=== PATIENT | male | born 1995 | race American Indian/Alaskan Native ===

== ENCOUNTER 2018-12-17 16:18 | Emergency (ER) | payer MEDICAID ==
[~2018-12-17] VITALS: Ht 182.9 cm; Wt 81.8 kg
[2018-12-17] MEDS ORDERED: LORazepam 1 MG tablet PO ONE (18:30)
[2018-12-17 18:32] LABS: BASOPHILS # (AUTO) 0.1 X10'3 (0-0.2); EOSINOPHILS # (AUTO) 0.4 X10'3 (0-0.9); HEMATOCRIT 49.4 % (42.0-52.0); HEMOGLOBIN 16.4 g/dl (14.0-17.9); LYMPHOCYTES % (AUTO) 32.7 % (21-51); MEAN CORPUSCULAR HEMOGLOBIN 30.2 PG (27.0-31.0); MEAN CORPUSCULAR HGB CONC 33.1 g/dL (33.0-36.5); MEAN CORPUSCULAR VOLUME 91.2 FL (78-98); MEAN PLATELET VOLUME 9.3 FL (7.4-10.4); MONOCYTES # (AUTO) 0.4 X10'3 (0-0.9); MONOCYTES % (AUTO) 6.6 % (2-12); NEUTROPHILS # (AUTO) 3.3 X10'3 (1.8-7.7); NEUTROPHILS % (AUTO) 53.7 % (42-75); PLATELET COUNT 295 X10'3 (140-440); RED BLOOD COUNT 5.42 X10'6 (4.70-6.10); RED CELL DISTRIBUTION WIDTH 13.9 % (11.5-14.5); WHITE BLOOD COUNT 6.1 X10'3 (4.5-11.0)
[2018-12-17 18:36] LABS: URINE AMPHETAMINE SCREEN NEGATIVE (Neg); URINE BARBITUATE SCREEN NEGATIVE (Neg); URINE BENZODIAZEPINES SCREEN NEGATIVE (Neg); URINE CANNABINOID SCREEN POSITIVE (Neg); URINE COCAINE SCREEN NEGATIVE (Neg); URINE METHADONE SCREEN NEGATIVE (Neg); URINE OPIATE SCREEN NEGATIVE (Neg); URINE PHENCYCLIDINE SCREEN NEGATIVE (Neg)
[2018-12-17 18:38] LABS: CLARITY,URINE CLEAR (Clear); COLOR,URINE STRAW (Yellow); GLUCOSE, URINE NEGATIVE (Neg); KETONES,URINE NEGATIVE (Neg); LEUKOCYTE ESTERASE ,URINE NEGATIVE (Neg); NITRITES, URINE NEGATIVE (Neg); OCCULT BLOOD,URINE MODERATE (Neg); PH,URINE 5.5 (4.8-8.0); PROTEIN,URINE NEGATIVE (Neg); UROBILINOGEN,URINE 0.2 E.U/dL (0.2-1.0)
[2018-12-17 18:42] LABS: UA COLLECTION TYPE CLN CATCH MIDSTREAM
[2018-12-17 18:43] LABS: ALANINE AMINOTRANSFERASE 22 U/L (12-78); ALBUMIN 4.6 G/DL (3.4-5.0); ALBUMIN/GLOBULIN RATIO 1.2 (1.1-1.5); ALKALINE PHOSPHATASE 82 IU/L (46-116); ANION GAP 5 (8-16); ASPARTATE AMINO TRANSFERASE 12 U/L (10-37); BILIRUBIN,TOTAL 0.2 MG/DL (0.1-1.0); BLOOD UREA NITROGEN 4 MG/DL (7-18); BUN/CREATININE RATIO 5.4 (5.4-32.0); CALCIUM 9.7 MG/DL (8.5-10.1); CHLORIDE 103 MMOL/L (99-107); CREATININE 0.74 MG/DL (0.60-1.10); GLUCOSE 92 MG/DL (70-104); POTASSIUM 4.5 MMOL/L (3.5-5.1); SODIUM 141 MMOL/L (135-145); TOTAL CARBON DIOXIDE 32.9 MMOL/L (24-32); TOTAL PROTEIN 8.5 G/DL (6.4-8.2); eGFR > 90 ML/MIN
[2018-12-17 18:45] LABS: BACTERIA,URINE NONE SEEN /HPF (Neg); MUCUS STRANDS NONE SEEN /LPF (Neg); SQUAMOUS EPITHELIAL CELL,UR FEW /LPF (FEW); WBC,URINE NONE SEEN /HPF (0-4)
[2018-12-17 18:50] LABS: ETHANOL < 0.010 GM/DL (0.0-0.010)
--- NOTE | 2018-12-17 21:15 | NUR ---
PT MOVED FROM MAIN ER , BED 7, TO OVERFLOW, BED 22. PT ESCORTED OVER BY RESIDENTIAL CHILD CARE COUNSELOR AND CAME WILLINGLY. MOTHER, DIANA (CELL [phone]) AT BEDSIDE, AND REPORTLY HELPS TO KEEP HIM CALM. PT WAS GIVEN ATIVAN AT 1.5 HR AGO, 2 MG PO, AND IS SLEEPY APPEARING AND EYES ARE CLOSING I INTRODUCE MYSELF AND UPDATED HIM ON THE 1798 INVOLUNTARY HOLD. PT STATES TO HIS MOM "IM NOT STAYING...I WANT YOU TO STAY". DOES NOT SEEM TO BE LISTENING WHAT IM TELLING HIM. MOTHER TOLD HIM SHE WILL BE BACK IN THE MORNING. PT ROLLED OVER AND PULLED BLANKETS TO HIS SHOUDER AND EYES CLOSED. MOTHER STATES "HE TOOK SOME BAD DRUGS", REPORTS HE SMOKES METH REGULARLY AND MARAJUANA, SHE DOES NOT THINK HE USES IV METH. THEY WERE AT THE CLINIC TODAY IN [place] (WHERE PT LIVES WITH HIS MOTHER) AND PT GETTING TELE PSYCHED AND BEGAME AGGITATED BY THE CONSULT, MOTHER THEN TALYA HIM HERE. PT TO BE SEEN BY [facility] TOMORROW. Addendum: 12/18/18 at 2019 by МАРИЯ patient encouraged to eat dinner. Did not want it. Went back to sleep. Resting with eyes closed and covers drawn up to his shoulders. No s/sx of distress.
--- NOTE | 2018-12-17 22:43 | NUR ---
PT APPEARS TO STILL BE ASLEEP. LYING ON HIS BACK WITH BLANKETS TO HIS CHEST. RR 14 AND UNLABORED. SITTER WITHIN VIEW OF PT AAT.
--- NOTE | 2018-12-18 02:40 | NUR ---
pt remains asleep, currently lying on his back with blankets covering to his shoulders. sitter within view of pt aat.
--- NOTE | 2018-12-18 06:30 | NUR ---
Asleep upon change of shift observation. Colr and breathing WNL.
--- NOTE | 2018-12-18 08:30 | NUR ---
Awakened for breakfast. Ate 100% of his meal. States he doesn't know why he is in the hospital except to state "my mother brought me here." Denies suicidal ideation or intent. Denies auditory or visual hallucinations. Denies felix drug use except "weed when my sister gives it to me. I don't use no dope." Mother called and stated patient has been using methamphetamine "for the past 6 years." "He gets belligerent and blows up. He's hard to live with." It is difficult to obtain a clear picture of this patient at this time.
--- NOTE | 2018-12-18 10:00 | NUR ---
Katie from [facility] at bedside to evaluate for 5150 status.
--- NOTE | 2018-12-18 10:30 | NUR ---
5150 written on patient.
--- NOTE | 2018-12-18 11:00 | NUR ---
Sleeping off and on. Presents as guarded and restless.
[2018-12-18] MEDS ORDERED: LORazepam 1 MG tablet PO PRN (11:50)
[2018-12-18] MEDS: haloperidol 5mg tablet PO SCH ×2 (12:11→20:30)
--- NOTE | 2018-12-18 12:30 | NUR ---
Patient continues to present as restless and guarded. Did mention that he is claustrophobic and when he opened up his eyes last night, he had been left all alone in his room and there was no one else around. Dr. Roe consulted about patient's need for medication to increase comfort and decrease paranoia. Order given for Haldol 10 mg./Ativan 2 mg. PO. Patient accepted the medication without event.
--- NOTE | 2018-12-18 17:30 | NUR ---
Patient slept for the remainder of the afternoon. Awakened for dinner and vital signs. Cooperative though quiet. Returned to sleep immediately afterwards.
--- NOTE | 2018-12-18 18:39 | NUR ---
received report. patient sleeping at this time. did not awaken to eat dinner. VS taken.
--- NOTE | 2018-12-18 21:15 | NUR ---
Patient to DC to [facility] at this time.
[2018-12-18 21:20] VITALS: BP 102/69
== END 2018-12-18 21:23 ==
LOC: ER 16:19
DX: F29 Unspecified psychosis not due to a substance or known physiological condition (principal); F12.90 Cannabis use, unspecified, uncomplicated
CPT/HCPCS: 36415; 80053; 80305; 80320; 81001; 84443; 85025; 99285